=== PATIENT | male | born 1970 | race Caucasian/White ===

== ENCOUNTER 2019-07-30 10:31 | Day surgery (SDC) | payer OTHER ==
[~2019-07-30] VITALS: Ht 180.3 cm; Wt 99.8 kg
[~2019-07-30 10:31] MED LIST: AMIT25TA PO; CHAN1PAK13 PO; FISH1000 PO; LIDOCAINE 2% INJ 100 MG/5 ML SDV (FOR ANES.) As Ordered ONE; NEXI20CA PO; NS 1,000 ML IV ONE; PANT20TA2 PO; PROPOFOL 200 MG/20 ML VIAL As Ordered ONE; VITA-157 PO
[2019-07-30] MEDS ORDERED: PROPOFOL 200 MG/20 ML VIAL As Ordered ONE (12:08)
[2019-07-30 12:17] VITALS: BP 119/75
--- NOTE | 2019-07-30 12:17 | ROOR ---
Patient Name: Golden George Procedure Date: 07/30/2019 11:56 AM Date of : 1970 Age: 49 Room: [facility] Gender: Male Note Status: Finalized Procedure: Total Colonoscopy to Cecum Indications: Screening in patient at increased risk: Colorectal cancer in father 60 or older, Last colonoscopy 5 years ago Providers: Tavares Jeffries MD Referring MD: Reji Good Requesting Provider: Medicines: Monitored Anesthesia Care Complications: No immediate complications. Procedure: Pre-Anesthesia Assessment: - The heart rate, respiratory rate, oxygen saturations, blood pressure, adequacy of pulmonary ventilation, and response to care were monitored throughout the procedure. The Colonoscope was introduced through the anus and advanced to the cecum, identified by appendiceal orifice and ileocecal valve. The colonoscopy was performed without difficulty. The patient tolerated the procedure well. The quality of the bowel preparation was excellent. Findings: The perianal and digital rectal examinations were normal. Non-bleeding internal hemorrhoids were found during retroflexion. The hemorrhoids were small and Grade I (internal hemorrhoids that do not prolapse). The exam was otherwise without abnormality on direct and retroflexion views. Impression: - Non-bleeding internal hemorrhoids. - The examination was otherwise normal on direct and retroflexion views. - No specimens collected. - The exam was otherwise normal to the cecum. Recommendation: - Patient has a contact number available for emergencies. The signs and symptoms of potential delayed complications were discussed with the patient. Return to normal activities tomorrow. Written discharge instructions were provided to the patient. - High fiber diet. - Discharge patient to home. - Continue present medications. - Repeat colonoscopy in 5 years for screening purposes. - Return to referring physician. - The findings and recommendations were discussed with the patient's family. Tavares Jeffries MD Tavares Jeffries MD 07/30/2019 12:16:31 PM Electronically signed by Tavares Jeffries MD Number of Addenda: 0 Note Initiated On: 07/30/2019 11:56 AM Estimated Blood Loss: Estimated blood loss: none.
== END 2019-07-30 12:52 | disposition home or self-care (01) ==
LOC: M OPP 10:31
PROVIDERS: ATTEND Internal Medicine Gastroenterology
DX: Z12.11 Encounter for screening for malignant neoplasm of colon (principal); Z80.0 Family history of malignant neoplasm of digestive organs; G47.30 Sleep apnea, unspecified; F17.210 Nicotine dependence, cigarettes, uncomplicated; Z79.899 Other long term (current) drug therapy

== ENCOUNTER → 2022-02-09 | Outpatient (CLI) | payer OTHER ==
[~2022-02-09] MED LIST changes: -AMIT25TA PO; +AMIT25TA17 PO; -LIDOCAINE 2% INJ 100 MG/5 ML SDV (FOR ANES.) As Ordered ONE; -NS 1,000 ML IV ONE; -PANT20TA2 PO; +PANT20TA6 PO; -PROPOFOL 200 MG/20 ML VIAL As Ordered ONE; -VITA-157 PO; +VITAE40CA PO
== END ==
LOC: M RAD 13:39
PROVIDERS: ATTEND Nurse Practitioner Adult Health
DX: F17.218 Nicotine dependence, cigarettes, with other nicotine-induced disorders (principal); Z12.2 Encounter for screening for malignant neoplasm of respiratory organs

== ENCOUNTER → 2022-05-23 | Outpatient (REF) | LOC: M PLAIMG 10:39 | PROVIDERS: ATTEND Internal Medicine | DX: Z00.00 Encounter for general adult medical examination without abnormal findings (principal) ==

== ENCOUNTER → 2023-09-04 | Outpatient (REF) ==
[~2023-09-04] MED LIST changes: -AMIT25TA17 PO; +AMIT25TA19 PO
== END ==
LOC: M PLAIMG 09:16
PROVIDERS: ATTEND Internal Medicine
DX: R06.02 Shortness of breath (principal)

== ENCOUNTER 2024-03-31 08:31 | Day surgery (SDC) | payer OTHER ==
[~2024-03-31] VITALS: Ht 177.8 cm; Wt 112.5 kg
[~2024-03-31 08:31] MED LIST changes: +ALBU2.5V10 INH; +ATOR1TAB19 PO; +CYCL-707 PO; +LISI5TAB11 PO; +OMEG10002 PO; +OMEP40CA4 PO; +THERTAB52 PO; +VITA100093 PO
[2024-03-31] MEDS ORDERED: propofoL 500 MG/50 ML VIAL As Ordered ONE (10:58)
[2024-03-31 11:14] VITALS: TEMP 97.1
[2024-03-31 11:35] VITALS: BP 133/91; O2SAT 98
== END 2024-03-31 11:45 | disposition home or self-care (01) ==
LOC: M OPP 08:31
PROVIDERS: ATTEND Internal Medicine Gastroenterology
DX: Z12.11 Encounter for screening for malignant neoplasm of colon (principal); K63.5 Polyp of colon; K22.2 Esophageal obstruction; K57.30 Diverticulosis of large intestine without perforation or abscess without bleeding; Z86.010 Personal history of colon polyps; K22.89 Other specified disease of esophagus; Z80.0 Family history of malignant neoplasm of digestive organs; K21.9 Gastro-esophageal reflux disease without esophagitis; I25.10 Atherosclerotic heart disease of native coronary artery without angina pectoris; I25.2 Old myocardial infarction; I10 Essential (primary) hypertension; E78.00 Pure hypercholesterolemia, unspecified; G47.30 Sleep apnea, unspecified; J45.909 Unspecified asthma, uncomplicated; Z79.899 Other long term (current) drug therapy; Z87.891 Personal history of nicotine dependence